=== PATIENT | male | born 1995 | race Two or more races ===

== ENCOUNTER 2017-08-17 11:24 | Emergency (ER) | payer MEDICAID ==
[~2017-08-17] VITALS: Ht 185.4 cm; Wt 77.1 kg
[2017-08-17] MEDS ORDERED: SODIUM CHLORIDE 0.9% 1,000 ML IV ONE (13:05)
[2017-08-17] MEDS ORDERED: MIDAZOLAM HCL 5 MG/ML-1ML VIAL IV ONE (13:15)
[2017-08-17] MEDS ORDERED: fentaNYL CITRATE 100 MCG/2 ML VL IV ONE (13:15)
[2017-08-17 15:00] VITALS: BP 114/76
== END 2017-08-17 13:57 | disposition home or self-care (01) ==
LOC: ER 11:24
DX: S43.005A Unspecified dislocation of left shoulder joint, initial encounter (principal); X58.XXXA Exposure to other specified factors, initial encounter; Y93.89 Activity, other specified; Y92.89 Other specified places as the place of occurrence of the external cause; Y99.8 Other external cause status
CPT/HCPCS: 23650; 73020; 73030; 94761; 96360; 99285; J2250; J3010; J7030; 96361; 96374; 96375

== ENCOUNTER 2017-08-21 22:41 | Emergency (ER) | payer MEDICAID ==
[~2017-08-21] VITALS: Ht 182.9 cm; Wt 77.1 kg
[2017-08-21] MEDS ORDERED: HYDROmorphone HCL 2 MG/ML VL IV ONE (23:45)
[2017-08-21] MEDS ORDERED: ONDANSETRON HCL 4 MG/2 ML VIAL IV ONE (23:45)
[2017-08-22] MEDS ORDERED: ETOMIDATE (2MG/ML) 20ML VIAL IV ONE ×2 (00:15→02:00)
[2017-08-22] MEDS ORDERED: PROPOFOL 100 ML IV ONE (01:14)
[2017-08-22] MEDS ORDERED: PROPOFOL 10 MG/ML 20 ML IV ONE (02:00)
[2017-08-22 02:55] VITALS: BP 151/99
== END 2017-08-22 04:18 | disposition home or self-care (01) ==
LOC: EDBD 22:41 → ER 22:52
DX: S43.085A Other dislocation of left shoulder joint, initial encounter (principal); X58.XXXA Exposure to other specified factors, initial encounter; Y93.89 Activity, other specified; Y99.8 Other external cause status; Y92.89 Other specified places as the place of occurrence of the external cause
CPT/HCPCS: 23650; 73020; 73030; 96374; 96375; 99152; 99285; J1170; J2405; J2704; J7030

== ENCOUNTER 2018-04-03 09:16 | Emergency (ER) | payer MEDICAID ==
[~2018-04-03] VITALS: Ht 182.9 cm; Wt 77.1 kg
[2018-04-03 09:23] VITALS: BP 137/80
[2018-04-03] MEDS ORDERED: cefTRIAXone SOD 1,000 MG VL IM ONE (10:30)
== END 2018-04-03 10:52 | disposition home or self-care (01) ==
LOC: ER 09:16
DX: L03.012 Cellulitis of left finger (principal)
CPT/HCPCS: 73130; 96372; 99284; J0696

== ENCOUNTER 2018-08-29 20:31 | Emergency (ER) | payer MEDICAID ==
[~2018-08-29] VITALS: Ht 185.4 cm; Wt 68.0 kg
[2018-08-30 01:00] VITALS: BP 128/62
== END 2018-08-30 01:00 | disposition home or self-care (01) ==
LOC: ER 21:17
DX: S43.492A Other sprain of left shoulder joint, initial encounter (principal); V49.49XA Driver injured in collision with other motor vehicles in traffic accident, initial encounter; Y93.89 Activity, other specified; Y99.8 Other external cause status; Y92.488 Other paved roadways as the place of occurrence of the external cause
CPT/HCPCS: 73030

== ENCOUNTER 2018-12-20 00:57 | Emergency (ER) | payer MEDICAID ==
[~2018-12-20] VITALS: Ht 185.4 cm; Wt 77.1 kg
[2018-12-20 01:19] VITALS: BP 140/96
[2018-12-20 02:27] LABS: Urine Bacteria FEW /hpf (None Seen); Urine Blood TRACE /uL (Negative); Urine Mucus FEW (None Seen); Urine Specific Gravity 1.018 (1.001-1.035); Urine Sperm PRESENT /hpf (None Seen); Urine WBC 18 /hpf (0 - 3)
== END 2018-12-20 01:30 | disposition left against medical advice (07) ==
LOC: MERGE 01:08 → ER 01:08
DX: R19.09 Other intra-abdominal and pelvic swelling, mass and lump (principal); Z53.21 Procedure and treatment not carried out due to patient leaving prior to being seen by health care provider
CPT/HCPCS: 74176; 81001

== ENCOUNTER 2018-12-20 05:25 | Emergency (ER) | payer MEDICAID ==
[~2018-12-20] VITALS: Ht 185.4 cm; Wt 77.1 kg
[2018-12-20 06:37] VITALS: BP 140/92
== END 2018-12-20 07:33 | disposition home or self-care (01) ==
LOC: ER 05:25
DX: D18.1 Lymphangioma, any site (principal); R59.9 Enlarged lymph nodes, unspecified

== ENCOUNTER 2019-01-14 01:43 | Emergency (ER) | payer MEDICAID ==
[~2019-01-14] VITALS: Ht 177.8 cm; Wt 81.6 kg
[2019-01-14 05:13] LABS: Basophils # (auto) 0 uL; Basophils % (auto) 0.3 % (0.0-2.0); Eosinophils # (auto) 0 uL; Eosinophils % (auto) 0.1 % (0.0-7.0); Hematocrit 43.4 % (41.0-53.0); Hemoglobin 14.6 g/dL (13.5-17.5); Lymphocytes # (auto) 1.1 uL; Lymphocytes % (auto) 9.3 % (10.0-50.0); Mean Corpuscular Hemoglobin 29.6 pg (28.0-32.0); Mean Corpuscular Hgb Conc. 33.6 g/dL (32.0-36.0); Mean Corpuscular Volume 88.2 fL (80.0-100.0); Monocytes # (auto) 0.4 uL; Monocytes % (auto) 3.2 % (0.0-12.0); Neutrophils # (auto) 10.5 uL; Neutrophils % (auto) 87.1 % (37.0-80.0); Platelet Count (auto) 155 10^3/uL (140-450); Red Blood Cells 4.91 10^6/uL (4.5-5.90); Red Cell Distribution Width 13.1 % (11.8-14.3)
[2019-01-14 05:32] LABS: Calcium 8.5 mg/dL (8.5-10.1); Potassium 3.9 mmol/L (3.5-5.1)
[2019-01-14 05:35] LABS: BUN/Creatinine Ratio 12.8; Bilirubin, Total 0.3 mg/dL (0.2-1.0); Total Protein 7.2 g/dL (6.4-8.2)
[2019-01-14 07:28] VITALS: BP 127/90
[2019-01-14 08:34] LABS: Amphetamine Screen, Urine POSITIVE (NEGATIVE); Barbiturate Scree,Urine NEGATIVE (NEGATIVE); Benzodiazephine Screen, Urine NEGATIVE (NEGATIVE); Cannabinoid Screen, Urine POSITIVE (NEGATIVE); Cocaine Screen, Urine NEGATIVE (NEGATIVE); Opiate Scree,Urine NEGATIVE (NEGATIVE); Phencyclidine Screen, Urine NEGATIVE (NEGATIVE)
[2019-01-14 08:48] LABS: Urine Amorphous Crystal FEW /hpf (None Seen); Urine Bacteria NONE SEEN /hpf (None Seen); Urine Blood Negative /uL (Negative); Urine Mucus FEW (None Seen); Urine WBC 1 /hpf (0 - 3)
== END 2019-01-14 08:34 | disposition home or self-care (01) ==
LOC: ER 01:43 → EDBD 01:43 → EDUNIT# 01:43 → ER 08:33
DX: J40 Bronchitis, not specified as acute or chronic (principal); F12.10 Cannabis abuse, uncomplicated; F17.210 Nicotine dependence, cigarettes, uncomplicated
CPT/HCPCS: 36415; 71045; 80053; 80307; 81001; 82962; 85025; 93005; 94761

== ENCOUNTER 2022-01-13 11:09 | Emergency (ER) | payer MEDICAID ==
[~2022-01-13] VITALS: Ht 185.4 cm; Wt 81.6 kg
[2022-01-13] MEDS ORDERED: ETOMIDATE (2MG/ML) 20ML VIAL IV ONE (12:00)
[2022-01-13] MEDS ORDERED: KETOROLAC TROMETH 30 MG/ML 1ML VIAL IV ONE (12:15)
[2022-01-13] MEDS ORDERED: PROPOFOL 100 ML IV ONE (14:23)
[2022-01-13] MEDS ORDERED: PROPOFOL 10 MG/ML 20 ML IV ONE (15:15)
[2022-01-13 16:06] VITALS: BP 114/70
== END 2022-01-13 16:06 | disposition home or self-care (01) ==
LOC: EDBD 11:09 → ER 11:09
DX: M24.412 Recurrent dislocation, left shoulder (principal); S42.292A Other displaced fracture of upper end of left humerus, initial encounter for closed fracture; F17.210 Nicotine dependence, cigarettes, uncomplicated; X50.1XXA Overexertion from prolonged static or awkward postures, initial encounter; Y93.89 Activity, other specified; Y92.89 Other specified places as the place of occurrence of the external cause; Y99.8 Other external cause status
CPT/HCPCS: 23650; 73020; 73030; 96374; 99152; 99285; J1885; J2704; J7030